=== PATIENT | male | born 1950 | race Caucasian/White ===

== ENCOUNTER 2023-03-16 12:18 | Emergency (ER) | payer MEDICARE, BC ==
[2023-03-16 12:35] VITALS: BP 168/87; PULSE 64; RESP 18; TEMP 98.3
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
--- NOTE | 2023-03-16 14:12 | XR ---
EXAMINATION TYPE: XR shoulder complete RT DATE OF EXAM: 03/16/2023 COMPARISON: NONE HISTORY: pain after fall. TECHNQUE: Three views are submitted. FINDINGS: The osseous structures are intact. There is no acute fracture or dislocation. Moderate AC joint arth ropathy with diffuse osteopenia. IMPRESSION: 1. AC joint arthropathy and diffuse osteopenia. No acute fracture.
--- NOTE | 2023-03-16 14:14 | XR ---
EXAM TYPE: LUMBAR SPINE X RAY SERIES COMPARISON: NONE HISTORY: Pain TECHNIQUE: 4 views are submitted. FINDINGS: Alignment is anatomic. The pedicles are intact. The transverse processes are intact. There is no s pondylolysis or spondylolisthesis. Severe degenerative disc disease L4-5 and L5-S1 with advanced fac et arthropathy and suspected bilateral foraminal encroachment. [id number]-rt-[id number] facet arthropathy L3- 4. IMPRESSION: 1. Severe degenerative disc disease L4-5 and L5-S1 with advanced facet arthropathy and suspected bila teral foraminal encroachment.
== END 2023-03-16 14:43 | disposition home or self-care (01) ==
LOC: EC 12:18
DX: S39.012A Strain of muscle, fascia and tendon of lower back, initial encounter (principal); S46.911A Strain of unspecified muscle, fascia and tendon at shoulder and upper arm level, right arm, initial encounter; I25.2 Old myocardial infarction; Z95.5 Presence of coronary angioplasty implant and graft; W01.0XXA Fall on same level from slipping, tripping and stumbling without subsequent striking against object, initial encounter; Y92.512 Supermarket, store or market as the place of occurrence of the external cause
CPT/HCPCS: 70450; 72110; 72125; 99285

== ENCOUNTER 2024-11-14 11:44 | Emergency (ER) | payer BC, OTHER, MEDICARE ==
[2024-11-14 11:48] VITALS: RESP 20
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
[2024-11-14 12:36] LABS: Basophils # (A) 0.03 10*3/uL (0.00-0.10); Basophils % (A) 0.5 %; Eosinophils # (A) 0.08 10*3/uL (0.04-0.35); Eosinophils % (A) 1.3 %; HCT 46.1 % (39.6-50.0); Lymphocytes # (A) 2.02 10*3/uL (0.90-5.00); Lymphocytes % (A) 32.4 %; MCH 32.9 pg (27.0-32.0); MCHC 34.7 g/dL (32.0-37.0); MCV 94.9 fL (80.0-97.0); Mean Platelet Volume 9.6 fL (9.5-12.2); Monocytes # (A) 0.56 10*3/uL (0.20-1.00); Neutrophils # (A) 3.51 10*3/uL (1.80-7.70); Neutrophils % (A) 56.3 %; Platelet Count 207 10*3/uL (140-440); RBC 4.86 10*6/uL (4.40-5.60); RDW 12.8 % (11.5-14.5); WBC 6.23 10*3/uL (4.50-10.00)
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
[2024-11-14 12:41] LABS: ALT 26 U/L (4-49); AST 24 U/L (17-59); African American GFR (CKD) >90 (>60 ml/min/1.73 sqM); Albumin 4.2 g/dL (3.5-5.0); Alkaline Phosphatase 76 U/L (38-126); Anion Gap 11 mmol/L; Blood Urea Nitrogen 18 mg/dL (9-20); Calcium 9.7 mg/dL (8.4-10.2); Carbon Dioxide 24 mmol/L (22-30); Chloride 106 mmol/L (98-107); Glucose 100 mg/dL (74-99); Non-African American GFR(CKD) 86 (>60 ml/min/1.73 sqM); Potassium 4.4 mmol/L (3.5-5.1); Sodium 141 mmol/L (137-145); Total Bilirubin 2.1 mg/dL (0.2-1.3)
[2024-11-14] MEDS: ACETAMINOPHEN TAB 500 MG TAB PO STA (12:43)
[2024-11-14 12:45] LABS: INR 0.9 (<1.2); Partial Thromboplastin Time 22.6 sec (22.0-30.0); Prothrombin Time 10.2 sec (10.0-12.5)
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
[2024-11-14 12:56] VITALS: TEMP 97.9
[2024-11-14 14:12] VITALS: BP 132/88; PULSE 58
== END 2024-11-14 14:12 | disposition home or self-care (01) ==
LOC: EC 11:44
DX: S06.0X0A Concussion without loss of consciousness, initial encounter (principal); R40.2142 Coma scale, eyes open, spontaneous, at arrival to emergency department; R40.2362 Coma scale, best motor response, obeys commands, at arrival to emergency department; R40.2252 Coma scale, best verbal response, oriented, at arrival to emergency department; V49.40XA Driver injured in collision with unspecified motor vehicles in traffic accident, initial encounter; Y92.410 Unspecified street and highway as the place of occurrence of the external cause
CPT/HCPCS: 36415; 70450; 72125; 80053; 83735; 84484; 85025; 85610; 85730; 93005; 99285